=== PATIENT | male | born 1970 | race Caucasian/White ===

== ENCOUNTER 2019-02-12 06:14 | Emergency (ER) | payer OTHER ==
[~2019-02-12] VITALS: Ht 182.9 cm; Wt 112.0 kg
[2019-02-12] MEDS ORDERED: SODIUM CHLORIDE 0.9% 50ML 50 ML ONE (07:42)
[2019-02-12] MEDS ORDERED: IOPAMIDOL 370 MG/ML 200 ML INFUS..BTL INJ ONE (07:42)
[2019-02-12] MEDS ORDERED: IBUPROFEN 600 MG TAB PO STA (08:01)
[2019-02-12] MEDS ORDERED: IBUPROFEN 200 MG TAB ONE (08:54)
--- NOTE | 2019-02-12 10:18 | Diagnostic Imaging Report ---
EXAM: CT Abdomen and Pelvis WITH intravenous contrast INDICATION: Gluteal abscess COMPARISON: None. TECHNIQUE: Abdomen and pelvis were scanned utilizing a multidetector helical scanner from the lung base to the pubic symphysis after administration of IV contrast. Coronal and sagittal reformations were obtained. Routine protocol was performed. Scan was performed during portal venous phase. IV CONTRAST: 100mL of Isovue 370 ORAL CONTRAST: Water RADIATION DOSE: Total DLP: 830.1 mGy*cm Dose modulation, iterative reconstruction, and/or weight based adjustment of the mA/kV was utilized to reduce the radiation dose to as low as reasonably achievable. FINDINGS: LOWER THORAX: Normal. HEPATOBILIARY: No focal hepatic lesions. No biliary ductal dilatation. The gallbladder appears unremarkable. SPLEEN: No splenomegaly. PANCREAS: No focal masses or ductal dilatation. ADRENALS: No adrenal nodules. KIDNEYS/URETERS: No hydronephrosis, stones, or solid mass lesions. PELVIC ORGANS/BLADDER: Unremarkable. PERITONEUM / RETROPERITONEUM: No free air or fluid. LYMPH NODES: Prominent gastrohepatic lymph node measures 1.3 cm short axis. Portocaval node (series 2 image 30) measures 1.4 x 2.9 cm. VESSELS: Mild scattered atherosclerotic calcifications of the nonaneurysmal abdominal aorta and major branches. GI TRACT: Mild colonic diverticulosis. No CT evidence of diverticulitis. No abnormal bowel wall thickening. No bowel obstruction. Normal appendix. BONES AND SOFT TISSUES: Mild right gluteal subcutaneous soft tissue stranding. No underlying focal gluteal mass or fluid collection. No acute osseous injury. No suspicious lytic or blastic lesions. IMPRESSION: Mild right gluteal soft tissue stranding. No underlying mass or fluid collection. Nonspecific enlarged gastrohepatic and portacaval nodes as above. Signed by: Frederic Atkinson MD on 02/12/2019 10:15 AM
[2019-02-12 10:40] VITALS: BP 118/68
== END 2019-02-12 10:46 | disposition home or self-care (01) ==
LOC: FSED 06:14
DX: M25.551 Pain in right hip (principal); S70.01XA Contusion of right hip, initial encounter; L40.50 Arthropathic psoriasis, unspecified; G44.219 Episodic tension-type headache, not intractable; T50.7X5A Adverse effect of analeptics and opioid receptor antagonists, initial encounter
CPT/HCPCS: 74177; 80053; 85025; 87400; 99284; Q9967